=== PATIENT | female | born 1990 | race Caucasian/White ===

== ENCOUNTER 2021-12-07 17:40 | Outpatient (CLI) | payer OTHER ==
[2021-12-07] MEDS ORDERED: PRENATAL TABLE1 EAC1 (18:00)
[2021-12-07] MEDS ORDERED: CHILDREN'S ASPI81 MG (18:01)
== END 2021-12-08 09:19 | disposition home or self-care (01) ==
LOC: OBS/DEL 17:40
PROVIDERS: ATTEND Obstetrics & Gynecology
DX: O47.03 False labor before 37 completed weeks of gestation, third trimester (principal); Z3A.36 36 weeks gestation of pregnancy; R10.2 Pelvic and perineal pain

== ENCOUNTER 2021-12-22 21:50 | Inpatient (IN) | payer OTHER ==
[~2021-12-22] VITALS: Ht 157.5 cm; Wt 57.2 kg
[~2021-12-22 21:50] MED LIST: CHILDREN'S ASPI81 MG; PRENATAL TABLE1 EAC1
== END 2021-12-25 19:41 | disposition home or self-care (01) | DRG 807 ==
LOC: LDR 21:50 → OB/GYN 12-24 10:32
PROVIDERS: ADMIT Obstetrics & Gynecology; ATTEND Obstetrics & Gynecology
PROC: 4A1HXCZ Monitoring of Products of Conception, Cardiac Rate, External Approach (ICD-10-PCS; 2021-12-22)
PROC: 10E0XZZ Delivery of Products of Conception, External Approach (ICD-10-PCS; principal; 2021-12-23)
DX: O80 Encounter for full-term uncomplicated delivery (principal); Z37.0 Single live birth; Z3A.38 38 weeks gestation of pregnancy; Z20.822 Contact with and (suspected) exposure to COVID-19